=== PATIENT | female | born 1935 | race African-American/Black ===

== ENCOUNTER 2019-03-26 14:42 | Inpatient (IN) | payer BC, MEDICARE ==
[~2019-03-26] VITALS: Ht 152.4 cm; Wt 74.8 kg
[2019-03-26] MEDS ORDERED: ONDANSETRON HCL 4MG/2ML INJ IV STA (15:50)
[2019-03-26] MEDS ORDERED: MORPHINE SULFATE 4 MG/ML CPJ (NOT FOR IM USE) IV STA (15:50)
[2019-03-26] MEDS ORDERED: SODIUM CHLORIDE 0.9% 1,000 ML IV ONE (15:50)
[2019-03-26 16:23] LABS: BASOPHILS % 0.2 % (0.0-2.0); EOSINOPHILS % 0.1 % (0.0-5.0); HEMATOCRIT. 39.9 % (36.0-48.0); HEMOGLOBIN. 13.3 g/dL (12.0-16.0); LYMPHOCYTES % 12.1 % (20.0-50.0); MEAN CORPUSCULAR HEMOGLOBIN 28.5 pg (28.0-32.0); MEAN CORPUSCULAR VOLUME 85.8 fL (81.0-99.0); MEAN PLATELET VOLUME 9.9 fl (7.4-10.4); MONOCYTES % 10.9 % (2.0-8.0); NEUTROPHILS % 76.7 % (40.0-76.0); PLATELET 205 x1000/uL (130-400); RED BLOOD CELL COUNT 4.65 mill/uL (4.2-5.4); RED CELL DISTRIBUTION WIDTH 14.2 % (11.6-14.6)
[2019-03-26 16:24] LABS: CHLORIDE 102 mEq/L (98-107)
[2019-03-26 16:25] LABS: PROTHROMBIN TIME 10.6 sec (9.6-11.0)
[2019-03-26] MEDS ORDERED: PIPERACILLIN/TAZ 3.375G PREMIX 50 ML IV ONE (18:30)
[2019-03-26] MEDS ORDERED: IOHEXOL-300 100 ML BOTTLE ONE (18:31)
[2019-03-26 20:40] VITALS: BP 197/89
[2019-03-26 20:45] VITALS: BP 197/89
[2019-03-26] MEDS ORDERED: LORAZEPAM 2MG/ML CPJ IV PRN (20:45)
[2019-03-26] MEDS ORDERED: DIPHENHYDRAMINE 50MG/ML VIAL IV PRN (20:45)
[2019-03-26] MEDS ORDERED: IPRATROPIUM/ALBUTEROL 0.5-3(2.5)MG/3ML NEB HHN PRN (20:45)
[2019-03-26] MEDS ORDERED: GUAIFENESIN 200MG/10ML SUGAR FREE UDC PO PRN (20:45)
[2019-03-26] MEDS ORDERED: DOCUSATE SODIUM 100MG CAPSULE PO PRN (20:45)
[2019-03-26] MEDS ORDERED: MAGNESIUM/ALUMINUM HYDROXIDE/SIMETHICONE 30ML UDC PO PRN (20:45)
[2019-03-26] MEDS ORDERED: CLONIDINE 0.1MG TABLET PO PRN (20:45)
[2019-03-26] MEDS ORDERED: ACETAMINOPHEN 325MG TABLET PO PRN (20:45)
[2019-03-26] MEDS ORDERED: ONDANSETRON HCL 4MG/2ML INJ IV PRN (20:45)
[2019-03-26] MEDS ORDERED: HYDROCODONE/ACETAMINOPHEN 10/325MG TABLET PO PRN (20:45)
[2019-03-26] MEDS ORDERED: NA PHOS,M-B/NA PHOS,DI-BA ENEMA 118ML PR PRN (20:45)
[2019-03-26] MEDS ORDERED: HYDROMORPHONE HCL/PF 2MG/ML CPJ IV PRN (20:45)
[2019-03-26] MEDS ORDERED: HYDRALAZINE 20MG/ML VIAL IV PRN (22:00)
[2019-03-26] MEDS: ENOXAPARIN 40MG/0.4ML SYR SUBCUT SCH (22:00)
[2019-03-26] MEDS: DEXT 5%/0.45% NACL 1000ML 1,000 ML IV SCH (22:26)
[2019-03-26] MEDS: SODIUM CHLORIDE 0.9% INJ 3ML FLUSH IVF SCH (22:26)
[2019-03-27] VITALS: BP 200/102
[2019-03-27 00:39] LABS: CREATINE KINASE 208 IU/L (26-192)
[2019-03-27 00:40] LABS: CREATINE KINASE MB FRACTION 1.5 ng/mL (0.5-3.6)
[2019-03-27 04:00] VITALS: BP 178/83
[2019-03-27 07:00] LABS: BASOPHILS % 0.4 % (0.0-2.0); EOSINOPHILS % 0.8 % (0.0-5.0); HEMATOCRIT. 35.4 % (36.0-48.0); HEMOGLOBIN. 11.9 g/dL (12.0-16.0); LYMPHOCYTES % 18.5 % (20.0-50.0); MEAN CORPUSCULAR HEMOGLOBIN 28.6 pg (28.0-32.0); MEAN CORPUSCULAR VOLUME 85.4 fL (81.0-99.0); MEAN PLATELET VOLUME 9.6 fl (7.4-10.4); MONOCYTES % 13.2 % (2.0-8.0); NEUTROPHILS % 67.1 % (40.0-76.0); PLATELET 181 x1000/uL (130-400); RED BLOOD CELL COUNT 4.14 mill/uL (4.2-5.4); RED CELL DISTRIBUTION WIDTH 14.5 % (11.6-14.6)
[2019-03-27 07:47] LABS: CHLORIDE 106 mEq/L (98-107)
[2019-03-27 08:00] VITALS: BP 146/86
[2019-03-27 08:05] LABS: CREATINE KINASE 154 IU/L (26-192)
[2019-03-27 08:07] LABS: CREATINE KINASE MB FRACTION 1.1 ng/mL (0.5-3.6)
[2019-03-27 12:00] VITALS: BP 177/82
[2019-03-27] MEDS: ENOXAPARIN 40MG/0.4ML SYR SUBCUT SCH ×2 (15:39→21:45)
[2019-03-27 16:00] VITALS: BP 193/84
[2019-03-27 20:00] VITALS: BP 193/84
[2019-03-27] MEDS: DEXT 5%/0.45% NACL 1000ML 1,000 ML IV SCH (20:41)
[2019-03-27] MEDS: SODIUM CHLORIDE 0.9% INJ 3ML FLUSH IVF SCH (21:52)
[2019-03-28] VITALS: BP 134/81
[2019-03-28 04:00] VITALS: BP 159/90
[2019-03-28 08:00] VITALS: BP_SYST 204; BP_DIAS 104; BP_DIAS 87
== END 2019-03-28 10:35 | disposition left against medical advice (07) | DRG 389 ==
LOC: ER 14:42 → 7WST 18:08 → EDBEDREQ 18:13 → ENRESERV 19:48
PROVIDERS: ADMIT Internal Medicine; ATTEND Internal Medicine
DX: K56.609 Unspecified intestinal obstruction, unspecified as to partial versus complete obstruction (principal); E87.1 Hypo-osmolality and hyponatremia; I10 Essential (primary) hypertension; K52.9 Noninfective gastroenteritis and colitis, unspecified; K57.90 Diverticulosis of intestine, part unspecified, without perforation or abscess without bleeding; Z53.29 Procedure and treatment not carried out because of patient's decision for other reasons; Z90.711 Acquired absence of uterus with remaining cervical stump; Z79.899 Other long term (current) drug therapy
CPT/HCPCS: 36415; 71045; 74018; 74177; 82550; 82553; 82962; 83605; 84484; 93005; 93970; 99285; J1650; J2270; J2405; J2543; J7030; Q9967

== ENCOUNTER 2021-10-02 14:27 | Inpatient (IN) | payer BC, OTHER ==
[~2021-10-02] VITALS: Ht 162.6 cm; Wt 69.6 kg
[2021-10-02] MEDS ORDERED: ONDANSETRON HCL 4MG/2ML INJ IV STA (15:18)
[2021-10-02] MEDS ORDERED: MORPHINE SULFATE 4 MG/ML CPJ (NOT FOR IM USE) IV STA (15:18)
[2021-10-02] MEDS ORDERED: SODIUM CHLORIDE 0.9% 1,000 ML IV ONE (15:30)
[2021-10-02 16:17] LABS: CHLORIDE 105 mEq/L (98-107)
[2021-10-02 16:20] LABS: BASOPHILS % 0.4 % (0.0-2.0); EOSINOPHILS % 0.6 % (0.0-5.0); HEMATOCRIT. 33.3 % (36.0-48.0); HEMOGLOBIN. 10.9 g/dL (12.0-16.0); LYMPHOCYTES % 9.8 % (20.0-50.0); MEAN CORPUSCULAR HEMOGLOBIN 28.3 pg (28.0-32.0); MEAN CORPUSCULAR VOLUME 86.4 fL (81.0-99.0); MEAN PLATELET VOLUME 8.6 fl (7.4-10.4); MONOCYTES % 9.5 % (2.0-8.0); NEUTROPHILS % 79.7 % (40.0-76.0); PLATELET 340 x1000/uL (130-400); RED BLOOD CELL COUNT 3.85 mill/uL (4.2-5.4); RED CELL DISTRIBUTION WIDTH 16.8 % (11.6-14.6)
[2021-10-03] MEDS ORDERED: MORPHINE SULFATE 4 MG/ML CPJ (NOT FOR IM USE) IV PRN (00:15)
[2021-10-03] MEDS ORDERED: DIPHENHYDRAMINE 50MG/ML VIAL IV PRN (00:15)
[2021-10-03] MEDS ORDERED: ONDANSETRON HCL 4MG/2ML INJ IV PRN (00:15)
[2021-10-03] MEDS: ONDANSETRON HCL 4MG/2ML INJ IV PRN (08:54)
[2021-10-03 10:00] VITALS: BP 148/77
[2021-10-03 12:00] VITALS: BP 177/87
[2021-10-03 16:00] VITALS: BP 171/76
[2021-10-03] MEDS: HYDRALAZINE 20MG/ML VIAL IV PRN (17:56)
[2021-10-03] MEDS: DEXT 5%/0.9% NACL 1,000 ML IV SCH (17:57)
[2021-10-03] MEDS: PANTOPRAZOLE SODIUM 40 MG/VIAL IV SCH (17:57)
[2021-10-03 20:32] VITALS: BP 135/61
[2021-10-04] VITALS: BP 133/60
[2021-10-04] MEDS: DEXT 5%/0.9% NACL 1,000 ML IV SCH ×4 (01:32→23:47)
[2021-10-04 04:00] VITALS: BP 139/68
[2021-10-04 08:16] VITALS: BP 167/81
[2021-10-04] MEDS: HYDRALAZINE 20MG/ML VIAL IV PRN (09:27)
[2021-10-04] MEDS: PANTOPRAZOLE SODIUM 40 MG/VIAL IV SCH (09:27)
[2021-10-04 12:26] VITALS: BP 130/67
[2021-10-04] MEDS ORDERED: DIATR MEGLU/DIATRIZOATE SOLN 120ML ONE (15:07)
[2021-10-04 15:30] VITALS: BP 145/73
[2021-10-04 20:00] VITALS: BP 145/70
[2021-10-04] MEDS: ONDANSETRON HCL 4MG/2ML INJ IV PRN (20:39)
[2021-10-04] MEDS: MORPHINE SULFATE 2 MG/ML CPJ (NOT FOR IM USE) IV PRN (20:40)
[2021-10-05] VITALS (40 sets, daily range): BP systolic 95–198; BP diastolic 46–130
[2021-10-05] MEDS: DEXT 5%/0.9% NACL 1,000 ML IV SCH ×2 (08:15→15:35)
[2021-10-05] MEDS: PANTOPRAZOLE SODIUM 40 MG/VIAL IV SCH (09:00)
[2021-10-05] MEDS ORDERED: LIDOCAINE HCL 1% 10 MG/ML 10ML VIAL ONE (12:38)
[2021-10-05] MEDS ORDERED: NALOXONE HCL 0.4MG/ML VIAL IV PRN (15:45)
[2021-10-05] MEDS: HYDRALAZINE 20MG/ML VIAL IV PRN (16:02)
[2021-10-05 16:14] LABS: BG BASE EXCESS -1.9 mmol/L (-2.0-2.0); BG CARBOXYHEMOGLOBIN 0.3 % (0.5-1.5); BG DEOXYHEMOGLOBIN 0.3 % (0.0-5.0); BG HCO3 ACT 21.6 mmol/L (22.0-26.0); BG METHEMOGLOBIN 0.6 % (0.0-1.5); BG OXYGEN SATURATION 99.7 % (92.0-98.5); BG OXYHEMOGLOBIN 98.8 % (94.0-97.0); BG PH 7.434 (7.350-7.450); BG PO2 508.9 mmHg (75.0-100.0); BG SAMPLE SITE LEFT RADIAL; BG TOTAL HEMOGLOBIN 12.5 g/dL (12.0-18.0); BG TOTAL RESPIRATORY RATE 17 b/min; BG VENT MODE VENT - AC
[2021-10-05 16:19] LABS: HEMATOCRIT. 36.6 % (36.0-48.0); HEMOGLOBIN. 11.6 g/dL (12.0-16.0); MEAN CORPUSCULAR HEMOGLOBIN 27.5 pg (28.0-32.0); MEAN CORPUSCULAR VOLUME 86.2 fL (81.0-99.0); MEAN PLATELET VOLUME 8.6 fl (7.4-10.4); PLATELET 368 x1000/uL (130-400); RED BLOOD CELL COUNT 4.24 mill/uL (4.2-5.4); RED CELL DISTRIBUTION WIDTH 16.5 % (11.6-14.6)
[2021-10-05 16:30] LABS: CHLORIDE 118 mEq/L (98-107)
[2021-10-05] MEDS ORDERED: IPRATROPIUM/ALBUTEROL 0.5-3(2.5)MG/3ML NEB HHN PRN (16:45)
[2021-10-05 17:08] LABS: PLATELET ESTIMATE NORMAL
[2021-10-05] MEDS: PROPOFOL 10MG/ML 100ML 100 ML IV PRN (17:18)
[2021-10-05] MEDS ORDERED: POTASSIUM CHLORIDE INJ 40 MEQ in DEXT 5% WATER 250 ML IV ONE (19:00)
[2021-10-05] MEDS: KCL 20MEQ/100ML X 2 FOR TOTAL KCL 40MEQ/200ML IV SCH (22:50)
[2021-10-06] VITALS (29 sets, daily range): BP systolic 116–170; BP diastolic 46–110
[2021-10-06] MEDS: DEXT 5%/0.9% NACL 1,000 ML IV SCH ×4 (01:08→22:48)
[2021-10-06] MEDS: PROPOFOL 10MG/ML 100ML 100 ML IV PRN (03:39)
[2021-10-06 05:54] LABS: CHLORIDE 120 mEq/L (98-107)
[2021-10-06 06:01] LABS: BASOPHILS % 0.3 % (0.0-2.0); HEMATOCRIT. 32.5 % (36.0-48.0); HEMOGLOBIN. 10.5 g/dL (12.0-16.0); LYMPHOCYTES % 8.6 % (20.0-50.0); MEAN CORPUSCULAR VOLUME 86.2 fL (81.0-99.0); MEAN PLATELET VOLUME 8.8 fl (7.4-10.4); MONOCYTES % 9.3 % (2.0-8.0); NEUTROPHILS % 81.8 % (40.0-76.0); PLATELET 299 x1000/uL (130-400); RED BLOOD CELL COUNT 3.77 mill/uL (4.2-5.4); RED CELL DISTRIBUTION WIDTH 16.4 % (11.6-14.6)
[2021-10-06] MEDS: HYDRALAZINE 20MG/ML VIAL IV PRN (07:33)
[2021-10-06] MEDS: PANTOPRAZOLE SODIUM 40 MG/VIAL IV SCH (08:55)
[2021-10-06 09:31] LABS: BG BASE EXCESS -5.8 mmol/L (-2.0-2.0); BG CARBOXYHEMOGLOBIN 0.3 % (0.5-1.5); BG FRACTION INSPIRED OXYGEN 35; BG HCO3 ACT 16.4 mmol/L (22.0-26.0); BG METHEMOGLOBIN 0.2 % (0.0-1.5); BG OXYHEMOGLOBIN 98.5 % (94.0-97.0); BG PCO2 23.4 mmHg (35.0-45.0); BG PH 7.463 (7.350-7.450); BG PO2 147.7 mmHg (75.0-100.0); BG SAMPLE SITE RIGHT RADIAL; BG TOTAL HEMOGLOBIN 11.4 g/dL (12.0-18.0); BG VENT MODE VENT - AC
[2021-10-06] MEDS: MORPHINE SULFATE 2 MG/ML CPJ (NOT FOR IM USE) IV PRN (09:53)
[2021-10-06 11:20] LABS: BG BASE EXCESS -7.3 mmol/L (-2.0-2.0); BG CARBOXYHEMOGLOBIN 0.3 % (0.5-1.5); BG DEOXYHEMOGLOBIN 0.6 % (0.0-5.0); BG FRACTION INSPIRED OXYGEN 100; BG HCO3 ACT 15.5 mmol/L (22.0-26.0); BG METHEMOGLOBIN 0.5 % (0.0-1.5); BG OXYGEN SATURATION 99.4 % (92.0-98.5); BG OXYHEMOGLOBIN 98.6 % (94.0-97.0); BG PH 7.428 (7.350-7.450); BG PO2 468.5 mmHg (75.0-100.0); BG SAMPLE SITE RIGHT RADIAL; BG VENT MODE VENT - CPAP
[2021-10-06] MEDS ORDERED: MORPHINE SULFATE 4 MG/ML CPJ (NOT FOR IM USE) IV PRN (16:00)
[2021-10-07] VITALS (46 sets, daily range): BP systolic 102–188; BP diastolic 24–100
[2021-10-07] MEDS: MORPHINE SULFATE 2 MG/ML CPJ (NOT FOR IM USE) IV PRN ×2 (00:18→09:52)
[2021-10-07] MEDS: HYDRALAZINE 20MG/ML VIAL IV PRN ×2 (01:02→12:57)
[2021-10-07] MEDS: DEXT 5%/0.9% NACL 1,000 ML IV SCH ×2 (06:30→14:58)
[2021-10-07 06:37] LABS: BASOPHILS % 0.3 % (0.0-2.0); EOSINOPHILS % 0.9 % (0.0-5.0); HEMATOCRIT. 31.8 % (36.0-48.0); HEMOGLOBIN. 10.4 g/dL (12.0-16.0); LYMPHOCYTES % 9.7 % (20.0-50.0); MEAN CORPUSCULAR HEMOGLOBIN 27.7 pg (28.0-32.0); MEAN PLATELET VOLUME 9.2 fl (7.4-10.4); MONOCYTES % 8.5 % (2.0-8.0); NEUTROPHILS % 80.6 % (40.0-76.0); PLATELET 311 x1000/uL (130-400); RED BLOOD CELL COUNT 3.74 mill/uL (4.2-5.4); RED CELL DISTRIBUTION WIDTH 17.2 % (11.6-14.6)
[2021-10-07 08:00] LABS: CHLORIDE 120 mEq/L (98-107)
[2021-10-07 08:06] LABS: PHOSPHORUS 2.1 mg/dL (2.5-4.9)
[2021-10-07] MEDS: PANTOPRAZOLE SODIUM 40 MG/VIAL IV SCH (08:37)
[2021-10-07] MEDS: DEXT 5%/0.45% NACL 1000ML 1,000 ML IV SCH (16:35)
[2021-10-08] VITALS (11 sets, daily range): BP systolic 111–177; BP diastolic 51–91
[2021-10-08] MEDS: HYDRALAZINE 20MG/ML VIAL IV PRN ×2 (00:31→17:26)
[2021-10-08] MEDS: DEXT 5%/0.45% NACL 1000ML 1,000 ML IV SCH ×3 (02:00→21:27)
[2021-10-08] MEDS: PANTOPRAZOLE SODIUM 40 MG/VIAL IV SCH (08:02)
[2021-10-08] MEDS: ONDANSETRON HCL 4MG/2ML INJ IV PRN (13:26)
[2021-10-08] MEDS: MORPHINE SULFATE 2 MG/ML CPJ (NOT FOR IM USE) IV PRN (17:25)
[2021-10-09] VITALS: BP 172/87
[2021-10-09] MEDS: HYDRALAZINE 20MG/ML VIAL IV PRN ×2 (00:33→20:54)
[2021-10-09] MEDS: MORPHINE SULFATE 2 MG/ML CPJ (NOT FOR IM USE) IV PRN (02:19)
[2021-10-09 04:00] VITALS: BP 150/72
[2021-10-09] MEDS: DEXT 5%/0.45% NACL 1000ML 1,000 ML IV SCH ×2 (06:05→17:30)
[2021-10-09 08:00] VITALS: BP 161/75
[2021-10-09] MEDS: PANTOPRAZOLE SODIUM 40 MG/VIAL IV SCH (09:48)
[2021-10-09 12:00] VITALS: BP 169/85
[2021-10-09 16:00] VITALS: BP 147/81
[2021-10-09 20:00] VITALS: BP 187/93
[2021-10-10] VITALS: BP 147/66
[2021-10-10 04:00] VITALS: BP 138/72
[2021-10-10] MEDS: DEXT 5%/0.45% NACL 1000ML 1,000 ML IV SCH ×3 (04:28→23:19)
[2021-10-10 05:31] LABS: HEMATOCRIT. 37.1 % (36.0-48.0); MEAN CORPUSCULAR HEMOGLOBIN 27.3 pg (28.0-32.0); MEAN CORPUSCULAR VOLUME 84.6 fL (81.0-99.0); MEAN PLATELET VOLUME 9.2 fl (7.4-10.4); PLATELET 318 x1000/uL (130-400); RED BLOOD CELL COUNT 4.39 mill/uL (4.2-5.4); RED CELL DISTRIBUTION WIDTH 16.1 % (11.6-14.6)
[2021-10-10 05:36] LABS: CHLORIDE 115 mEq/L (98-107)
[2021-10-10 05:40] LABS: PHOSPHORUS 2.7 mg/dL (2.5-4.9)
[2021-10-10 07:58] VITALS: BP 140/77
[2021-10-10] MEDS: PANTOPRAZOLE SODIUM 40 MG/VIAL IV SCH (09:10)
[2021-10-10] MEDS: KCL 20MEQ/100ML PREMIX 100 ML IV SCH ×2 (11:24→13:37)
[2021-10-10 11:48] VITALS: BP 128/74
[2021-10-10] MEDS ORDERED: MAGNESIUM 1 G PREMIX 100 ML IV SCH (12:00)
[2021-10-10 12:52] LABS: PLATELET ESTIMATE NORMAL
[2021-10-10 16:00] VITALS: BP 167/83
[2021-10-10] MEDS ORDERED: POTASSIUM CHLORIDE INJ 40 MEQ in DEXT 5% WATER 500 ML IV ONE (17:15)
[2021-10-10] MEDS ORDERED: MAGNESIUM 1 G PREMIX 100 ML IV NR (18:00)
[2021-10-10 20:00] VITALS: BP 164/77
[2021-10-10] MEDS: HYDRALAZINE 20MG/ML VIAL IV PRN (21:04)
[2021-10-10] MEDS: KCL 20MEQ/100ML X 2 FOR TOTAL KCL 40MEQ/200ML IV SCH ×2 (21:05→23:18)
[2021-10-11] VITALS: BP 132/68
[2021-10-11 04:00] VITALS: BP 157/82
[2021-10-11] MEDS: MORPHINE SULFATE 2 MG/ML CPJ (NOT FOR IM USE) IV PRN ×2 (05:42→10:58)
[2021-10-11 06:10] LABS: BASOPHILS % 0.1 % (0.0-2.0); EOSINOPHILS % 0.7 % (0.0-5.0); HEMATOCRIT. 33.4 % (36.0-48.0); HEMOGLOBIN. 10.9 g/dL (12.0-16.0); LYMPHOCYTES % 8.1 % (20.0-50.0); MEAN CORPUSCULAR HEMOGLOBIN 27.5 pg (28.0-32.0); MEAN CORPUSCULAR VOLUME 84.1 fL (81.0-99.0); MEAN PLATELET VOLUME 8.4 fl (7.4-10.4); MONOCYTES % 10.8 % (2.0-8.0); NEUTROPHILS % 80.3 % (40.0-76.0); PLATELET 300 x1000/uL (130-400); RED BLOOD CELL COUNT 3.97 mill/uL (4.2-5.4); RED CELL DISTRIBUTION WIDTH 16.1 % (11.6-14.6)
[2021-10-11 08:10] VITALS: BP 161/83
[2021-10-11 08:32] LABS: CHLORIDE 116 mEq/L (98-107); PHOSPHORUS 2.2 mg/dL (2.5-4.9)
[2021-10-11] MEDS: PANTOPRAZOLE SODIUM 40 MG/VIAL IV SCH (09:38)
[2021-10-11] MEDS: HYDRALAZINE 20MG/ML VIAL IV PRN (09:38)
[2021-10-11 12:00] VITALS: BP 131/66
[2021-10-11] MEDS ORDERED: POTASSIUM PHOS,M-BASIC-D-BASIC 20 MMOL in DEXT 5% WATER 250 ML IV SCH (12:00)
[2021-10-11 16:00] VITALS: BP 134/80
[2021-10-11 20:00] VITALS: BP 139/76
[2021-10-12] VITALS: BP 153/77
[2021-10-12 04:00] VITALS: BP 152/84
[2021-10-12] MEDS: DEXT 5%/0.45% NACL 1000ML 1,000 ML IV SCH ×2 (05:06→18:39)
[2021-10-12 08:00] VITALS: BP 175/86
[2021-10-12] MEDS: ACETAMINOPHEN 650MG/20.3ML UDC PO PRN ×2 (08:07→21:28)
[2021-10-12] MEDS: PANTOPRAZOLE SODIUM 40 MG/VIAL IV SCH (08:09)
[2021-10-12] MEDS: HYDRALAZINE 20MG/ML VIAL IV PRN (08:11)
[2021-10-12 12:00] VITALS: BP 148/78
[2021-10-12 16:00] VITALS: BP 155/82
[2021-10-12 20:00] VITALS: BP 143/84
[2021-10-13] VITALS: BP 177/99
[2021-10-13] MEDS: HYDRALAZINE 20MG/ML VIAL IV PRN ×2 (00:57→20:47)
[2021-10-13] MEDS: DEXT 5%/0.45% NACL 1000ML 1,000 ML IV SCH ×3 (00:59→20:48)
[2021-10-13 04:00] VITALS: BP 156/83
[2021-10-13 08:00] VITALS: BP 176/97
[2021-10-13] MEDS: PANTOPRAZOLE SODIUM 40 MG/VIAL IV SCH (09:43)
[2021-10-13] MEDS: ACETAMINOPHEN 650MG/20.3ML UDC PO PRN (09:43)
[2021-10-13 12:00] VITALS: BP 132/80
[2021-10-13] MEDS ORDERED: DILTIAZEM HCL 60MG TABLET PO SCH (14:00)
[2021-10-13 16:00] VITALS: BP 169/84
[2021-10-13] MEDS: METOPROLOL TARTRATE 25MG TABLET PO SCH (18:19)
[2021-10-13 20:00] VITALS: BP 177/95
[2021-10-14] VITALS: BP 155/76
[2021-10-14 03:57] VITALS: BP 160/75
[2021-10-14] MEDS: DEXT 5%/0.45% NACL 1000ML 1,000 ML IV SCH ×2 (06:56→15:43)
[2021-10-14 07:59] VITALS: BP 159/72
[2021-10-14] MEDS: METOPROLOL TARTRATE 25MG TABLET PO SCH ×2 (09:18→16:17)
[2021-10-14] MEDS: ACETAMINOPHEN 650MG/20.3ML UDC PO PRN ×2 (09:18→16:22)
[2021-10-14] MEDS: PANTOPRAZOLE SODIUM 40 MG/VIAL IV SCH (09:19)
[2021-10-14 12:00] VITALS: BP 157/83
[2021-10-14 16:00] VITALS: BP 161/80
[2021-10-14] MEDS: HYDRALAZINE 20MG/ML VIAL IV PRN (16:17)
[2021-10-14 20:00] VITALS: BP 149/65
[2021-10-15] VITALS: BP 154/72
[2021-10-15] MEDS: DEXT 5%/0.45% NACL 1000ML 1,000 ML IV SCH (03:56)
[2021-10-15 04:00] VITALS: BP 168/76
[2021-10-15] MEDS: HYDRALAZINE 20MG/ML VIAL IV PRN (04:54)
[2021-10-15 08:00] VITALS: BP 131/77
[2021-10-15] MEDS: PANTOPRAZOLE SODIUM 40 MG/VIAL IV SCH (09:17)
[2021-10-15] MEDS: METOPROLOL TARTRATE 25MG TABLET PO SCH ×2 (09:26→17:07)
[2021-10-15 12:00] VITALS: BP 155/71
[2021-10-15 16:38] VITALS: BP 162/80
[2021-10-15 20:00] VITALS: BP 156/72
[2021-10-15] MEDS: ACETAMINOPHEN 650MG/20.3ML UDC PO PRN (23:19)
[2021-10-16] VITALS: BP 146/81
[2021-10-16 04:00] VITALS: BP_SYST 118; BP_SYST 154; BP_DIAS 50; BP_DIAS 70
[2021-10-16] MEDS: OMEPRAZOLE 20MG CAPSULE EXTENDED RELEASE PO SCH (06:33)
[2021-10-16 08:00] VITALS: BP_SYST 147; BP_SYST 152; BP_DIAS 70; BP_DIAS 77
[2021-10-16] MEDS: METOPROLOL TARTRATE 25MG TABLET PO SCH (09:23)
[2021-10-16 16:00] VITALS: BP 151/76
[2021-10-16 20:00] VITALS: BP 157/64
[2021-10-17 00:07] VITALS: BP 169/87
[2021-10-17] MEDS: HYDRALAZINE 20MG/ML VIAL IV PRN (00:14)
[2021-10-17 04:08] VITALS: BP 155/87
[2021-10-17] MEDS: OMEPRAZOLE 20MG CAPSULE EXTENDED RELEASE PO SCH (06:16)
[2021-10-17] MEDS: METOPROLOL TARTRATE 25MG TABLET PO SCH ×2 (08:07→16:10)
[2021-10-17 11:57] VITALS: BP 157/78
[2021-10-17] MEDS ORDERED: MAGNESIUM HYDROXIDE 400MG/5ML 30ML UDC PO NR (13:00)
[2021-10-17 15:59] VITALS: BP 104/72
[2021-10-17 20:00] VITALS: BP 155/77
[2021-10-18] VITALS: BP 145/72
[2021-10-18 04:00] VITALS: BP 154/74
[2021-10-18] MEDS: OMEPRAZOLE 20MG CAPSULE EXTENDED RELEASE PO SCH (06:30)
[2021-10-18 08:00] VITALS: BP_SYST 121; BP_SYST 182; BP_DIAS 54; BP_DIAS 85
[2021-10-18 08:10] LABS: BASOPHILS % 0.5 % (0.0-2.0); EOSINOPHILS % 1.8 % (0.0-5.0); HEMOGLOBIN. 10.3 g/dL (12.0-16.0); LYMPHOCYTES % 17.4 % (20.0-50.0); MEAN CORPUSCULAR HEMOGLOBIN 28.7 pg (28.0-32.0); MEAN CORPUSCULAR VOLUME 86.2 fL (81.0-99.0); MEAN PLATELET VOLUME 9.4 fl (7.4-10.4); MONOCYTES % 10.8 % (2.0-8.0); NEUTROPHILS % 69.5 % (40.0-76.0); PLATELET 206 x1000/uL (130-400); RED CELL DISTRIBUTION WIDTH 16.8 % (11.6-14.6)
[2021-10-18 08:51] LABS: CHLORIDE 110 mEq/L (98-107)
[2021-10-18] MEDS: LOSARTAN POTASSIUM 25 MG TABLET PO SCH (08:57)
[2021-10-18] MEDS: METOPROLOL TARTRATE 25MG TABLET PO SCH ×2 (08:58→18:11)
[2021-10-18] MEDS: HYDRALAZINE 20MG/ML VIAL IV PRN (08:59)
[2021-10-18 09:03] LABS: PHOSPHORUS 2.7 mg/dL (2.5-4.9)
[2021-10-18 12:00] VITALS: BP 147/74
[2021-10-18 16:00] VITALS: BP 144/70
[2021-10-18 20:00] VITALS: BP 148/80
[2021-10-19] VITALS: BP 156/48
[2021-10-19 06:17] VITALS: BP 136/82
[2021-10-19] MEDS: OMEPRAZOLE 20MG CAPSULE EXTENDED RELEASE PO SCH (06:21)
[2021-10-19] MEDS: LOSARTAN POTASSIUM 25 MG TABLET PO SCH (10:04)
[2021-10-19] MEDS: METOPROLOL TARTRATE 25MG TABLET PO SCH ×2 (10:06→18:35)
[2021-10-19] MEDS: HYDRALAZINE 20MG/ML VIAL IV PRN (10:08)
[2021-10-19] MEDS ORDERED: BISACODYL 10MG SUPP PR NR (10:45)
[2021-10-19 20:00] VITALS: BP 127/83
[2021-10-20] VITALS: BP 158/76
[2021-10-20 04:00] VITALS: BP 112/73
[2021-10-20] MEDS: OMEPRAZOLE 20MG CAPSULE EXTENDED RELEASE PO SCH (06:43)
[2021-10-20 08:00] VITALS: BP 164/76
[2021-10-20] MEDS: LOSARTAN POTASSIUM 25 MG TABLET PO SCH (09:00)
[2021-10-20] MEDS: METOPROLOL TARTRATE 25MG TABLET PO SCH ×2 (09:18→18:51)
[2021-10-20 12:00] VITALS: BP 157/79
[2021-10-20 16:00] VITALS: BP 150/69
[2021-10-20 20:00] VITALS: BP 168/99
[2021-10-20 21:09] LABS: BASOPHILS % 1.2 % (0.0-2.0); EOSINOPHILS % 1.7 % (0.0-5.0); HEMOGLOBIN. 8.9 g/dL (12.0-16.0); LYMPHOCYTES % 18.8 % (20.0-50.0); MEAN CORPUSCULAR HEMOGLOBIN 27.6 pg (28.0-32.0); MEAN CORPUSCULAR VOLUME 83.8 fL (81.0-99.0); MEAN PLATELET VOLUME 8.7 fl (7.4-10.4); MONOCYTES % 7.3 % (2.0-8.0); PLATELET 245 x1000/uL (130-400); RED BLOOD CELL COUNT 3.23 mill/uL (4.2-5.4); RED CELL DISTRIBUTION WIDTH 16.5 % (11.6-14.6)
[2021-10-20 21:33] LABS: CHLORIDE 108 mEq/L (98-107)
[2021-10-20] MEDS: CLONIDINE 0.2MG TABLET PO PRN (21:33)
[2021-10-21] VITALS: BP 135/67
[2021-10-21 04:00] VITALS: BP 161/77
[2021-10-21] MEDS: CLONIDINE 0.2MG TABLET PO PRN (05:01)
[2021-10-21] MEDS: OMEPRAZOLE 20MG CAPSULE EXTENDED RELEASE PO SCH (06:22)
[2021-10-21 08:00] VITALS: BP 153/67
[2021-10-21] MEDS: LOSARTAN POTASSIUM 25 MG TABLET PO SCH (08:58)
[2021-10-21] MEDS: METOPROLOL TARTRATE 25MG TABLET PO SCH ×2 (08:59→16:28)
[2021-10-21 12:00] VITALS: BP 146/56
[2021-10-21] MEDS ORDERED: HYDRALAZINE 10 MG in SODIUM CHLORIDE 0.9% 49.5 ML IV PRN ×4 (15:30)
[2021-10-21 16:00] VITALS: BP 127/52
[2021-10-21 20:00] VITALS: BP 155/72
[2021-10-22] VITALS: BP 169/70
[2021-10-22 04:00] VITALS: BP 142/77
[2021-10-22 08:00] VITALS: BP 151/71
[2021-10-22] MEDS: METOPROLOL TARTRATE 25MG TABLET PO SCH ×2 (09:00→17:00)
[2021-10-22] MEDS: LOSARTAN POTASSIUM 25 MG TABLET PO SCH (09:33)
[2021-10-22] MEDS: OMEPRAZOLE 20MG CAPSULE EXTENDED RELEASE PO SCH (09:33)
[2021-10-22 12:00] VITALS: BP 144/68
[2021-10-22 16:00] VITALS: BP 139/65
[2021-10-22 20:00] VITALS: BP 149/74
[2021-10-23] VITALS: BP 142/72
[2021-10-23 04:00] VITALS: BP 140/70
[2021-10-23 08:00] VITALS: BP 177/75
[2021-10-23] MEDS: CLONIDINE 0.2MG TABLET PO PRN (09:08)
[2021-10-23] MEDS: METOPROLOL TARTRATE 25MG TABLET PO SCH ×2 (09:08→17:08)
[2021-10-23] MEDS: OMEPRAZOLE 20MG CAPSULE EXTENDED RELEASE PO SCH (09:08)
[2021-10-23] MEDS: LOSARTAN POTASSIUM 25 MG TABLET PO SCH (09:08)
[2021-10-23 12:00] VITALS: BP 120/64
[2021-10-23 16:00] VITALS: BP 109/73
[2021-10-23 20:00] VITALS: BP 94/67
[2021-10-24 04:00] VITALS: BP 156/66
[2021-10-24 08:00] VITALS: BP 148/68
[2021-10-24] MEDS: METOPROLOL TARTRATE 25MG TABLET PO SCH ×2 (09:00→17:41)
[2021-10-24] MEDS: OMEPRAZOLE 20MG CAPSULE EXTENDED RELEASE PO SCH (09:50)
[2021-10-24] MEDS: LOSARTAN POTASSIUM 25 MG TABLET PO SCH (09:50)
[2021-10-24 12:00] VITALS: BP 160/64
[2021-10-24 16:00] VITALS: BP 142/58
[2021-10-24 20:00] VITALS: BP 158/60
[2021-10-25] VITALS: BP 146/61
[2021-10-25 04:00] VITALS: BP 139/65
[2021-10-25] MEDS: OMEPRAZOLE 20MG CAPSULE EXTENDED RELEASE PO SCH (06:26)
[2021-10-25 08:00] VITALS: BP 169/70
[2021-10-25] MEDS: LOSARTAN POTASSIUM 25 MG TABLET PO SCH (08:43)
[2021-10-25] MEDS: METOPROLOL TARTRATE 25MG TABLET PO SCH ×2 (08:44→18:38)
[2021-10-25 12:00] VITALS: BP 160/70
[2021-10-25 16:00] VITALS: BP 143/66
[2021-10-25 20:00] VITALS: BP 148/70
[2021-10-26] VITALS: BP 154/68
[2021-10-26 04:00] VITALS: BP 102/55
[2021-10-26 08:00] VITALS: BP 177/77
[2021-10-26] MEDS: METOPROLOL TARTRATE 25MG TABLET PO SCH ×2 (08:23→18:32)
[2021-10-26] MEDS: OMEPRAZOLE 20MG CAPSULE EXTENDED RELEASE PO SCH (08:30)
[2021-10-26] MEDS: LOSARTAN POTASSIUM 25 MG TABLET PO SCH (08:30)
[2021-10-26 12:00] VITALS: BP 168/65
[2021-10-26 16:00] VITALS: BP 145/57
[2021-10-26 20:00] VITALS: BP 149/58
[2021-10-27] VITALS: BP 161/69
[2021-10-27 04:00] VITALS: BP 166/70
[2021-10-27] MEDS: CLONIDINE 0.2MG TABLET PO PRN (05:03)
[2021-10-27] MEDS: OMEPRAZOLE 20MG CAPSULE EXTENDED RELEASE PO SCH ×2 (07:55→08:49)
[2021-10-27 08:00] VITALS: BP 127/54
[2021-10-27] MEDS: METOPROLOL TARTRATE 25MG TABLET PO SCH ×2 (08:49→17:00)
[2021-10-27] MEDS: LOSARTAN POTASSIUM 25 MG TABLET PO SCH (08:49)
[2021-10-27 20:00] VITALS: BP 119/54
[2021-10-28] VITALS: BP 157/77
[2021-10-28 04:00] VITALS: BP 156/67
[2021-10-28 08:00] VITALS: BP 109/64
[2021-10-28 12:00] VITALS: BP 130/50
[2021-10-28 12:30] VITALS: BP 130/50
== END 2021-10-28 13:35 | DRG 335 ==
LOC: ER 14:27 → MICUSO 22:21 → 6WST 10-03 09:45 → CVICU 10-05 15:32 → 6WST 10-08 08:51 → 6EST 10-19 15:50
PROVIDERS: ADMIT Internal Medicine; ATTEND Internal Medicine
PROC: 0DN80ZZ Release Small Intestine, Open Approach (ICD-10-PCS; principal; 2021-10-05)
PROC: 02HV33Z Insertion of Infusion Device into Superior Vena Cava, Percutaneous Approach (ICD-10-PCS; 2021-10-05)
DX: K56.601 Complete intestinal obstruction, unspecified as to cause (principal); G93.41 Metabolic encephalopathy; S42.212A Unspecified displaced fracture of surgical neck of left humerus, initial encounter for closed fracture; K57.92 Diverticulitis of intestine, part unspecified, without perforation or abscess without bleeding; K56.7 Ileus, unspecified; D64.9 Anemia, unspecified; I10 Essential (primary) hypertension; M19.90 Unspecified osteoarthritis, unspecified site; Z20.822 Contact with and (suspected) exposure to COVID-19; R53.81 Other malaise; R26.9 Unspecified abnormalities of gait and mobility; E87.6 Hypokalemia; X58.XXXA Exposure to other specified factors, initial encounter; Y93.89 Activity, other specified; Z90.710 Acquired absence of both cervix and uterus; Z88.0 Allergy status to penicillin; Z88.8 Allergy status to other drugs, medicaments and biological substances; Z91.012 Allergy to eggs; Z91.010 Allergy to peanuts; Z82.49 Family history of ischemic heart disease and other diseases of the circulatory system; Y92.89 Other specified places as the place of occurrence of the external cause; Y99.8 Other external cause status; Z98.890 Other specified postprocedural states
CPT/HCPCS: 31500; 36415; 36600; 71045; 73030; 74018; 74176; 74250; 76937; 80048; 80053; 82375; 82805; 82962; 83735; 84100; 84478; 85025; 86850; 86900; 87070; 87426; 93005; 93923; 94002; 94003; 97110; 97162; 97166; 97168; 97530; 99291; A4565; C1725; C1769; C9113; J0360; J2270; J2405; J2704; J3475; J3480; J3490; J7030; J7042; J7060; Q9963; A4315

== ENCOUNTER 2022-05-11 12:45 | Inpatient (IN) | payer BC, OTHER ==
[~2022-05-11] VITALS: Ht 165.1 cm; Wt 60.3 kg
[2022-05-11] VITALS (26 sets, daily range): BP systolic 116–163; BP diastolic 50–94
[2022-05-11] MEDS ORDERED: SODIUM CHLORIDE 0.9% 1,000 ML IV ONE (13:00)
[2022-05-11 14:39] LABS: BASOPHILS % 0.5 % (0.0-2.0); EOSINOPHILS % 1.1 % (0.0-5.0); LYMPHOCYTES % 14.6 % (20.0-50.0); MEAN CORPUSCULAR HEMOGLOBIN 27.7 pg (28.0-32.0); MEAN CORPUSCULAR VOLUME 85.2 fL (81.0-99.0); MEAN PLATELET VOLUME 8.3 fl (7.4-10.4); MONOCYTES % 6.9 % (2.0-8.0); NEUTROPHILS % 76.9 % (40.0-76.0); PLATELET 346 x1000/uL (130-400); RED BLOOD CELL COUNT 4.35 mill/uL (4.2-5.4); RED CELL DISTRIBUTION WIDTH 15.3 % (11.6-14.6)
[2022-05-11 16:17] LABS: CHLORIDE 110 mEq/L (98-107)
[2022-05-11] MEDS ORDERED: LEVETIRACETAM 500MG PREMIX 100 ML IV SCH (17:00)
[2022-05-11 17:08] LABS: PROTHROMBIN TIME 10.8 sec (9.6-11.0)
[2022-05-11] MEDS: DEXT 5%/LACTATED RINGERS 1,000 ML IV SCH (18:26)
[2022-05-11] MEDS ORDERED: TRAMADOL 50MG TABLET PO PRN (19:00)
[2022-05-11] MEDS ORDERED: ONDANSETRON HCL 4MG/2ML INJ IV PRN (19:00)
[2022-05-11] MEDS: NICARDIPINE 100 MG in SODIUM CHLORIDE 0.9% 60 ML IV PRN (19:14)
[2022-05-11] MEDS ORDERED: LOSA50TA41 PO (19:28)
[2022-05-11] MEDS ORDERED: METO25TA6 PO (19:28)
[2022-05-11] MEDS ORDERED: INSLIS SUBCUT (19:28)
[2022-05-11] MEDS ORDERED: OMEP20CA14 PO (19:28)
[2022-05-12] VITALS (86 sets, daily range): BP systolic 70–157; BP diastolic 41–142
[2022-05-12] MEDS ORDERED: THROMBIN (BOVINE) 5000 UNITS/VIAL TOP ONE (06:39)
[2022-05-12] MEDS ORDERED: LIDOCAINE HCL 1%/EPI 1:200,000 30 ML VIAL ONE (06:39)
[2022-05-12] MEDS ORDERED: BACITRACIN/POLYMYXIN B SULFATE OINT 15GM TOP ONE (06:39)
[2022-05-12] MEDS ORDERED: GENTAMICIN SULF 40MG/ML 2ML VIAL ONE (06:39)
[2022-05-12] MEDS ORDERED: PROPOFOL 200MG/20ML VIAL IV ONE (08:16)
[2022-05-12] MEDS ORDERED: CLINDAMYCIN 900 MG PREMIX 50 ML IV ONE (08:33)
[2022-05-12] MEDS ORDERED: ONDANSETRON HCL 4MG/2ML INJ ONE (08:42)
[2022-05-12] MEDS ORDERED: DEXAMETHASONE 4MG/ML 1ML VIAL ONE (08:59)
[2022-05-12] MEDS ORDERED: FENTANYL CITRATE/PF 50MCG/ML 2ML VIAL IV PRN (09:00)
[2022-05-12] MEDS ORDERED: NALOXONE HCL 0.4MG/ML VIAL IV PRN (09:15)
[2022-05-12] MEDS: MORPHINE SULFATE 2 MG/ML CPJ (NOT FOR IM USE) IV PRN (09:34)
[2022-05-12] MEDS: DEXT 5%/LACTATED RINGERS 1,000 ML IV SCH (09:45)
[2022-05-12] MEDS: LEVETIRACETAM 500MG PREMIX 100 ML IV SCH ×2 (10:06→21:35)
[2022-05-12] MEDS: NICARDIPINE 100 MG in SODIUM CHLORIDE 0.9% 60 ML IV PRN (10:06)
[2022-05-12 11:47] LABS: CHLORIDE 114 mEq/L (98-107)
[2022-05-12 12:14] LABS: HDL CHOLESTEROL 56 mg/dL (40-59); LDL CHOLESTEROL 140 mg/dL (5-100)
[2022-05-12 14:28] LABS: GENTAMICIN RANDOM < 0.2 ug/mL
[2022-05-12] MEDS ORDERED: GENTAMICIN 120MG PREMIX 100 ML IV NR (16:00)
[2022-05-12] MEDS: ACETAMINOPHEN 325MG TABLET PO PRN (17:32)
[2022-05-13] VITALS (90 sets, daily range): BP systolic 78–168; BP diastolic 37–132
[2022-05-13] MEDS: ACETAMINOPHEN 325MG TABLET PO PRN ×2 (01:31→09:08)
[2022-05-13] MEDS: MORPHINE SULFATE 2 MG/ML CPJ (NOT FOR IM USE) IV PRN (02:12)
[2022-05-13] MEDS: DEXT 5%/LACTATED RINGERS 1,000 ML IV SCH ×2 (02:47→20:19)
[2022-05-13] MEDS: PANTOPRAZOLE SODIUM 40 MG/VIAL IV SCH ×2 (09:00→09:08)
[2022-05-13] MEDS: LEVETIRACETAM 500MG PREMIX 100 ML IV SCH ×2 (09:08→20:18)
[2022-05-13] MEDS ORDERED: GENTAMICIN 100MG PREMIX 100 ML IV SCH (10:00)
[2022-05-13] MEDS ORDERED: IPRATROPIUM/ALBUTEROL 0.5-3(2.5)MG/3ML NEB HHN PRN (10:15)
[2022-05-13] MEDS ORDERED: GENTAMICIN 100MG PREMIX 50 ML IV SCH (11:30)
[2022-05-13 12:26] LABS: BASOPHILS % 0.1 % (0.0-2.0); EOSINOPHILS % 0.1 % (0.0-5.0); HEMATOCRIT. 35.8 % (36.0-48.0); HEMOGLOBIN. 11.6 g/dL (12.0-16.0); LYMPHOCYTES % 13.8 % (20.0-50.0); MEAN CORPUSCULAR HEMOGLOBIN 27.8 pg (28.0-32.0); MEAN CORPUSCULAR VOLUME 85.8 fL (81.0-99.0); MEAN PLATELET VOLUME 8.2 fl (7.4-10.4); MONOCYTES % 8.5 % (2.0-8.0); NEUTROPHILS % 77.5 % (40.0-76.0); PLATELET 331 x1000/uL (130-400); RED BLOOD CELL COUNT 4.17 mill/uL (4.2-5.4); RED CELL DISTRIBUTION WIDTH 15.2 % (11.6-14.6)
[2022-05-13 14:32] LABS: CHLORIDE 110 mEq/L (98-107)
[2022-05-14] VITALS (72 sets, daily range): BP systolic 99–157; BP diastolic 40–116
[2022-05-14] MEDS: MORPHINE SULFATE 2 MG/ML CPJ (NOT FOR IM USE) IV PRN (04:47)
[2022-05-14] MEDS: NICARDIPINE 100 MG in SODIUM CHLORIDE 0.9% 60 ML IV PRN ×2 (05:38→19:46)
[2022-05-14] MEDS: PANTOPRAZOLE SODIUM 40 MG/VIAL IV SCH (09:47)
[2022-05-14] MEDS: LEVETIRACETAM 500MG PREMIX 100 ML IV SCH ×2 (09:47→20:35)
[2022-05-14] MEDS ORDERED: HYDRALAZINE HCL 25MG TABLET PO SCH (14:00)
[2022-05-14] MEDS: DEXT 5%/LACTATED RINGERS 1,000 ML IV SCH ×2 (14:56→19:34)
[2022-05-14] MEDS ORDERED: ENALAPRIL 2.5MG/2ML VIAL 2ML IV PRN (20:15)
[2022-05-14] MEDS: HYDRALAZINE HCL 25MG TABLET PO SCH (22:00)
[2022-05-15] VITALS (70 sets, daily range): BP systolic 94–166; BP diastolic 22–106
[2022-05-15] MEDS: HYDRALAZINE HCL 25MG TABLET PO SCH
[2022-05-15] MEDS ORDERED: NICARDIPINE 50 MG in SODIUM CHLORIDE 0.9% 230 ML IV PRN (02:45)
[2022-05-15] MEDS ORDERED: NICARDIPINE 100 MG in SODIUM CHLORIDE 0.9% 60 ML IV PRN (02:45)
[2022-05-15] MEDS ORDERED: HYDRALAZINE HCL 25MG TABLET PO SCH ×2 (06:00→08:00)
[2022-05-15] MEDS: PANTOPRAZOLE SODIUM 40 MG/VIAL IV SCH (09:21)
[2022-05-15] MEDS: LEVETIRACETAM 500MG PREMIX 100 ML IV SCH ×2 (09:21→20:58)
[2022-05-15] MEDS: LOSARTAN POTASSIUM 50 MG TABLET PO SCH (11:09)
[2022-05-15] MEDS: METOPROLOL TARTRATE 25MG TABLET PO SCH ×2 (11:10→20:58)
[2022-05-15] MEDS: HYDRALAZINE HCL 100MG TABLET PO SCH ×2 (13:37→21:00)
[2022-05-15] MEDS: DEXT 5%/LACTATED RINGERS 1,000 ML IV SCH (21:00)
[2022-05-16] VITALS (40 sets, daily range): BP systolic 101–163; BP diastolic 22–108
[2022-05-16] MEDS: PANTOPRAZOLE SODIUM 40 MG/VIAL IV SCH (09:30)
[2022-05-16] MEDS: HYDRALAZINE HCL 100MG TABLET PO SCH ×3 (09:30→22:00)
[2022-05-16] MEDS: METOPROLOL TARTRATE 25MG TABLET PO SCH ×2 (09:31→21:35)
[2022-05-16] MEDS: LOSARTAN POTASSIUM 50 MG TABLET PO SCH (09:31)
[2022-05-16] MEDS: LEVETIRACETAM 500MG PREMIX 100 ML IV SCH ×2 (09:32→21:34)
[2022-05-16] MEDS: DEXT 5%/LACTATED RINGERS 1,000 ML IV SCH (14:24)
[2022-05-16] MEDS ORDERED: MORPHINE SULFATE 2 MG/ML CPJ (NOT FOR IM USE) IV NR (16:45)
[2022-05-16] MEDS ORDERED: HYDROCODONE/ACETAMINOPHEN 7.5/325MG TABLET PO PRN (16:45)
[2022-05-17] VITALS (35 sets, daily range): BP systolic 108–162; BP diastolic 40–95
[2022-05-17] MEDS: HYDRALAZINE HCL 100MG TABLET PO SCH ×3 (05:59→22:53)
[2022-05-17] MEDS: LOSARTAN POTASSIUM 50 MG TABLET PO SCH (09:08)
[2022-05-17] MEDS: LEVETIRACETAM 500MG PREMIX 100 ML IV SCH ×2 (09:08→20:28)
[2022-05-17] MEDS: PANTOPRAZOLE SODIUM 40 MG/VIAL IV SCH (09:09)
[2022-05-17] MEDS: METOPROLOL TARTRATE 25MG TABLET PO SCH ×2 (09:09→20:27)
[2022-05-17 10:37] LABS: BASOPHILS % 0.6 % (0.0-2.0); EOSINOPHILS % 1.1 % (0.0-5.0); HEMATOCRIT. 32.7 % (36.0-48.0); HEMOGLOBIN. 10.9 g/dL (12.0-16.0); LYMPHOCYTES % 19.5 % (20.0-50.0); MEAN CORPUSCULAR HEMOGLOBIN 27.5 pg (28.0-32.0); MEAN CORPUSCULAR VOLUME 82.7 fL (81.0-99.0); MEAN PLATELET VOLUME 8.7 fl (7.4-10.4); MONOCYTES % 10.2 % (2.0-8.0); NEUTROPHILS % 68.6 % (40.0-76.0); PLATELET 308 x1000/uL (130-400); RED BLOOD CELL COUNT 3.95 mill/uL (4.2-5.4); RED CELL DISTRIBUTION WIDTH 14.8 % (11.6-14.6)
[2022-05-17 11:19] LABS: CHLORIDE 109 mEq/L (98-107)
[2022-05-17] MEDS: DEXT 5%/LACTATED RINGERS 1,000 ML IV SCH ×2 (20:00)
[2022-05-18] VITALS (40 sets, daily range): BP systolic 110–175; BP diastolic 47–113
[2022-05-18] MEDS: HYDRALAZINE HCL 100MG TABLET PO SCH ×3 (05:26→21:13)
[2022-05-18] MEDS: METOPROLOL TARTRATE 25MG TABLET PO SCH ×2 (08:37→21:12)
[2022-05-18] MEDS: PANTOPRAZOLE SODIUM 40 MG/VIAL IV SCH (08:37)
[2022-05-18] MEDS: LEVETIRACETAM 500MG PREMIX 100 ML IV SCH ×2 (08:37→21:12)
[2022-05-18] MEDS: LOSARTAN POTASSIUM 50 MG TABLET PO SCH (08:37)
[2022-05-19] VITALS (24 sets, daily range): BP systolic 97–143; BP diastolic 52–98
[2022-05-19] MEDS: HYDRALAZINE HCL 100MG TABLET PO SCH ×3 (05:10→21:43)
[2022-05-19] MEDS: PANTOPRAZOLE SODIUM 40 MG/VIAL IV SCH (08:34)
[2022-05-19] MEDS: LEVETIRACETAM 500MG PREMIX 100 ML IV SCH ×2 (08:34→21:43)
[2022-05-19] MEDS: METOPROLOL TARTRATE 25MG TABLET PO SCH ×2 (08:35→21:43)
[2022-05-19] MEDS: LOSARTAN POTASSIUM 50 MG TABLET PO SCH (08:35)
[2022-05-20] VITALS: BP 108/42
[2022-05-20 04:00] VITALS: BP 110/45
[2022-05-20] MEDS: HYDRALAZINE HCL 100MG TABLET PO SCH ×3 (05:09→21:38)
[2022-05-20 08:00] VITALS: BP 125/87
[2022-05-20] MEDS: LOSARTAN POTASSIUM 50 MG TABLET PO SCH ×2 (09:00→10:00)
[2022-05-20] MEDS: METOPROLOL TARTRATE 25MG TABLET PO SCH ×3 (09:00→20:50)
[2022-05-20] MEDS: LEVETIRACETAM 500MG PREMIX 100 ML IV SCH (10:01)
[2022-05-20] MEDS: PANTOPRAZOLE SODIUM 40 MG/VIAL IV SCH (10:01)
[2022-05-20 12:00] VITALS: BP 110/69
[2022-05-20 16:00] VITALS: BP 116/54
[2022-05-20 20:00] VITALS: BP 131/68
[2022-05-20] MEDS: LEVETIRACETAM 500MG TABLET PO SCH (20:50)
[2022-05-21] VITALS (7 sets, daily range): BP systolic 99–139; BP diastolic 66–78
[2022-05-21] MEDS: HYDRALAZINE HCL 100MG TABLET PO SCH ×3 (06:00→21:11)
[2022-05-21] MEDS: PANTOPRAZOLE SODIUM 40 MG/VIAL IV SCH (09:33)
[2022-05-21] MEDS: LEVETIRACETAM 500MG TABLET PO SCH ×2 (09:33→21:00)
[2022-05-21] MEDS: LOSARTAN POTASSIUM 50 MG TABLET PO SCH (09:34)
[2022-05-21] MEDS: METOPROLOL TARTRATE 25MG TABLET PO SCH ×2 (09:34→21:00)
[2022-05-22 00:22] VITALS: BP 143/74
[2022-05-22 04:00] VITALS: BP 150/69
[2022-05-22] MEDS: HYDRALAZINE HCL 100MG TABLET PO SCH ×3 (05:41→20:42)
[2022-05-22 08:00] VITALS: BP 117/58
[2022-05-22] MEDS: LEVETIRACETAM 500MG TABLET PO SCH ×2 (08:51→21:13)
[2022-05-22] MEDS: LOSARTAN POTASSIUM 50 MG TABLET PO SCH (08:51)
[2022-05-22] MEDS: METOPROLOL TARTRATE 25MG TABLET PO SCH ×2 (08:51→21:14)
[2022-05-22] MEDS: PANTOPRAZOLE SODIUM 40 MG/VIAL IV SCH (08:51)
[2022-05-22 12:00] VITALS: BP 124/58
[2022-05-22 16:00] VITALS: BP 98/48
[2022-05-22 20:00] VITALS: BP 110/73
[2022-05-23] VITALS: BP 129/61
[2022-05-23 04:00] VITALS: BP 138/72
[2022-05-23] MEDS: HYDRALAZINE HCL 100MG TABLET PO SCH ×3 (05:30→22:20)
[2022-05-23 08:00] VITALS: BP 125/56
[2022-05-23] MEDS: METOPROLOL TARTRATE 25MG TABLET PO SCH ×2 (09:20→21:00)
[2022-05-23] MEDS: LEVETIRACETAM 500MG TABLET PO SCH ×2 (09:20→22:16)
[2022-05-23] MEDS: LOSARTAN POTASSIUM 50 MG TABLET PO SCH (09:20)
[2022-05-23] MEDS: PANTOPRAZOLE SODIUM 40 MG/VIAL IV SCH (09:21)
[2022-05-23 12:00] VITALS: BP 124/51
[2022-05-23 16:00] VITALS: BP 128/54
[2022-05-23 20:00] VITALS: BP 109/61
[2022-05-24] VITALS: BP 132/67
[2022-05-24 04:00] VITALS: BP 140/62
[2022-05-24] MEDS: HYDRALAZINE HCL 100MG TABLET PO SCH ×3 (06:45→22:00)
[2022-05-24] MEDS: METOPROLOL TARTRATE 25MG TABLET PO SCH ×2 (09:00→21:00)
[2022-05-24] MEDS: PANTOPRAZOLE SODIUM 40 MG/VIAL IV SCH (11:27)
[2022-05-24] MEDS: LEVETIRACETAM 500MG TABLET PO SCH ×2 (11:27→22:07)
[2022-05-24] MEDS: LOSARTAN POTASSIUM 50 MG TABLET PO SCH (11:27)
[2022-05-24 12:00] VITALS: BP 123/67
[2022-05-24 16:00] VITALS: BP 99/47
[2022-05-24 20:00] VITALS: BP 102/56
[2022-05-25] VITALS: BP 123/71
[2022-05-25] MEDS: HYDRALAZINE HCL 100MG TABLET PO SCH ×3 (06:59→21:39)
[2022-05-25 08:00] VITALS: BP 140/78
[2022-05-25] MEDS: METOPROLOL TARTRATE 25MG TABLET PO SCH ×2 (08:36→21:00)
[2022-05-25] MEDS: PANTOPRAZOLE SODIUM 40 MG/VIAL IV SCH (08:36)
[2022-05-25] MEDS: LEVETIRACETAM 500MG TABLET PO SCH ×2 (08:36→21:37)
[2022-05-25] MEDS: LOSARTAN POTASSIUM 50 MG TABLET PO SCH (08:36)
[2022-05-25 12:00] VITALS: BP 110/53
[2022-05-25 16:00] VITALS: BP 109/57
[2022-05-25 20:00] VITALS: BP 99/74
[2022-05-26] VITALS: BP 139/74
[2022-05-26 06:00] VITALS: BP 129/55
[2022-05-26] MEDS: HYDRALAZINE HCL 100MG TABLET PO SCH ×3 (06:40→21:15)
[2022-05-26 08:00] VITALS: BP 125/57
[2022-05-26] MEDS: LOSARTAN POTASSIUM 50 MG TABLET PO SCH (08:46)
[2022-05-26] MEDS: LEVETIRACETAM 500MG TABLET PO SCH ×2 (08:46→21:15)
[2022-05-26] MEDS: PANTOPRAZOLE SODIUM 40 MG/VIAL IV SCH (08:46)
[2022-05-26] MEDS: METOPROLOL TARTRATE 25MG TABLET PO SCH ×2 (08:47→20:28)
[2022-05-26 12:00] VITALS: BP 100/49
[2022-05-26 16:00] VITALS: BP 98/41
[2022-05-26 20:00] VITALS: BP 100/53
[2022-05-27] VITALS: BP 135/78
[2022-05-27 04:00] VITALS: BP 122/64
[2022-05-27] MEDS: HYDRALAZINE HCL 100MG TABLET PO SCH ×3 (05:21→21:23)
[2022-05-27 08:00] VITALS: BP 124/48
[2022-05-27] MEDS: PANTOPRAZOLE SODIUM 40 MG/VIAL IV SCH (09:55)
[2022-05-27] MEDS: LEVETIRACETAM 500MG TABLET PO SCH ×2 (09:55→21:23)
[2022-05-27] MEDS: METOPROLOL TARTRATE 25MG TABLET PO SCH ×2 (09:55→21:24)
[2022-05-27] MEDS: LOSARTAN POTASSIUM 50 MG TABLET PO SCH (09:56)
[2022-05-27 12:00] VITALS: BP 111/59
[2022-05-27 16:00] VITALS: BP 109/60
[2022-05-27 20:01] VITALS: BP 136/64
[2022-05-28 00:01] VITALS: BP 118/64
[2022-05-28 04:00] VITALS: BP 130/64
[2022-05-28] MEDS: HYDRALAZINE HCL 100MG TABLET PO SCH ×3 (05:25→21:19)
[2022-05-28 08:00] VITALS: BP 126/64
[2022-05-28] MEDS: METOPROLOL TARTRATE 25MG TABLET PO SCH ×2 (10:15→21:20)
[2022-05-28] MEDS: PANTOPRAZOLE SODIUM 40 MG/VIAL IV SCH (10:15)
[2022-05-28] MEDS: LOSARTAN POTASSIUM 50 MG TABLET PO SCH (10:16)
[2022-05-28] MEDS: LEVETIRACETAM 500MG TABLET PO SCH ×2 (10:16→21:20)
[2022-05-28 12:00] VITALS: BP 133/64
[2022-05-28 16:00] VITALS: BP 111/67
[2022-05-28 20:00] VITALS: BP 131/74
[2022-05-29] VITALS: BP 126/62
[2022-05-29 04:00] VITALS: BP 113/60
[2022-05-29] MEDS: HYDRALAZINE HCL 100MG TABLET PO SCH ×3 (06:25→23:32)
[2022-05-29 08:00] VITALS: BP 122/72
[2022-05-29] MEDS: METOPROLOL TARTRATE 25MG TABLET PO SCH ×2 (10:03→21:27)
[2022-05-29] MEDS: LOSARTAN POTASSIUM 50 MG TABLET PO SCH (10:03)
[2022-05-29] MEDS: LEVETIRACETAM 500MG TABLET PO SCH ×2 (10:03→21:26)
[2022-05-29] MEDS: PANTOPRAZOLE SODIUM 40 MG/VIAL IV SCH (10:03)
[2022-05-29 12:00] VITALS: BP 102/57
[2022-05-29 16:00] VITALS: BP 107/52
[2022-05-29 20:00] VITALS: BP 119/55
[2022-05-30] VITALS: BP 131/70
[2022-05-30 04:00] VITALS: BP 108/60
[2022-05-30] MEDS: HYDRALAZINE HCL 100MG TABLET PO SCH ×3 (06:00→21:40)
[2022-05-30 08:00] VITALS: BP 125/60
[2022-05-30] MEDS: PANTOPRAZOLE SODIUM 40 MG/VIAL IV SCH (08:24)
[2022-05-30] MEDS: LEVETIRACETAM 500MG TABLET PO SCH ×2 (08:24→21:40)
[2022-05-30] MEDS: LOSARTAN POTASSIUM 50 MG TABLET PO SCH (08:25)
[2022-05-30] MEDS: METOPROLOL TARTRATE 25MG TABLET PO SCH ×2 (08:25→21:40)
[2022-05-30 12:00] VITALS: BP 118/59
[2022-05-30 16:00] VITALS: BP 133/62
[2022-05-30 20:00] VITALS: BP 125/53
[2022-05-31] VITALS: BP 128/84
[2022-05-31 04:08] VITALS: BP 137/64
[2022-05-31] MEDS: HYDRALAZINE HCL 100MG TABLET PO SCH ×3 (05:12→21:59)
[2022-05-31 08:00] VITALS: BP 126/62
[2022-05-31] MEDS: PANTOPRAZOLE SODIUM 40 MG/VIAL IV SCH (08:33)
[2022-05-31] MEDS: LEVETIRACETAM 500MG TABLET PO SCH ×2 (08:34→21:57)
[2022-05-31] MEDS: METOPROLOL TARTRATE 25MG TABLET PO SCH ×2 (08:34→21:58)
[2022-05-31] MEDS: LOSARTAN POTASSIUM 50 MG TABLET PO SCH (08:34)
[2022-05-31 12:00] VITALS: BP 117/42
[2022-05-31 16:00] VITALS: BP 116/51
[2022-05-31 20:55] VITALS: BP 114/54
[2022-06-01 00:39] VITALS: BP 143/74
[2022-06-01 04:00] VITALS: BP 139/63
[2022-06-01] MEDS: HYDRALAZINE HCL 100MG TABLET PO SCH ×3 (05:14→21:07)
[2022-06-01] MEDS: LOSARTAN POTASSIUM 50 MG TABLET PO SCH (09:00)
[2022-06-01] MEDS: METOPROLOL TARTRATE 25MG TABLET PO SCH ×2 (09:00→20:56)
[2022-06-01] MEDS: PANTOPRAZOLE SODIUM 40 MG/VIAL IV SCH (10:04)
[2022-06-01] MEDS: LEVETIRACETAM 500MG TABLET PO SCH ×2 (10:04→21:06)
[2022-06-01 12:00] VITALS: BP 132/63
[2022-06-01 16:00] VITALS: BP 112/49
[2022-06-01 20:56] VITALS: BP 121/54
[2022-06-02 00:43] VITALS: BP 126/51
[2022-06-02 04:00] VITALS: BP 105/58
[2022-06-02] MEDS: HYDRALAZINE HCL 100MG TABLET PO SCH ×3 (05:32→21:00)
[2022-06-02 08:00] VITALS: BP 137/68
[2022-06-02] MEDS: METOPROLOL TARTRATE 25MG TABLET PO SCH ×2 (08:38→20:57)
[2022-06-02] MEDS: LOSARTAN POTASSIUM 50 MG TABLET PO SCH (08:38)
[2022-06-02] MEDS: LEVETIRACETAM 500MG TABLET PO SCH ×2 (08:38→20:57)
[2022-06-02] MEDS: PANTOPRAZOLE SODIUM 40 MG/VIAL IV SCH (08:46)
[2022-06-02 12:00] VITALS: BP 120/58
[2022-06-02 16:00] VITALS: BP 117/70
[2022-06-02 20:30] VITALS: BP 144/68
[2022-06-03] VITALS: BP 132/69
[2022-06-03 04:20] VITALS: BP 143/73
[2022-06-03] MEDS: HYDRALAZINE HCL 100MG TABLET PO SCH ×3 (05:30→20:41)
[2022-06-03 08:00] VITALS: BP 142/57
[2022-06-03] MEDS: PANTOPRAZOLE SODIUM 40 MG/VIAL IV SCH (08:53)
[2022-06-03] MEDS: LEVETIRACETAM 500MG TABLET PO SCH ×2 (08:54→20:41)
[2022-06-03] MEDS: METOPROLOL TARTRATE 25MG TABLET PO SCH ×2 (08:54→20:36)
[2022-06-03] MEDS: LOSARTAN POTASSIUM 50 MG TABLET PO SCH (08:54)
[2022-06-03 12:35] VITALS: BP 98/48
[2022-06-03 16:00] VITALS: BP 102/51
[2022-06-03 20:07] VITALS: BP 126/60
[2022-06-04] VITALS (7 sets, daily range): BP systolic 91–129; BP diastolic 46–75
[2022-06-04] MEDS: HYDRALAZINE HCL 100MG TABLET PO SCH ×3 (06:20→21:01)
[2022-06-04] MEDS: METOPROLOL TARTRATE 25MG TABLET PO SCH ×2 (10:18→20:47)
[2022-06-04] MEDS: LOSARTAN POTASSIUM 50 MG TABLET PO SCH (10:19)
[2022-06-04] MEDS: PANTOPRAZOLE 40MG DR TABLET PO SCH (10:19)
[2022-06-04] MEDS: LEVETIRACETAM 500MG TABLET PO SCH ×2 (10:19→20:55)
[2022-06-05] VITALS (7 sets, daily range): BP systolic 109–137; BP diastolic 53–69
[2022-06-05] MEDS: HYDRALAZINE HCL 100MG TABLET PO SCH ×3 (05:29→22:00)
[2022-06-05] MEDS: PANTOPRAZOLE 40MG DR TABLET PO SCH (10:20)
[2022-06-05] MEDS: METOPROLOL TARTRATE 25MG TABLET PO SCH ×2 (10:20→22:08)
[2022-06-05] MEDS: LOSARTAN POTASSIUM 50 MG TABLET PO SCH (10:21)
[2022-06-05] MEDS: LEVETIRACETAM 500MG TABLET PO SCH ×2 (10:21→22:08)
[2022-06-06 00:43] VITALS: BP 101/62
[2022-06-06 04:00] VITALS: BP 148/68
[2022-06-06] MEDS: HYDRALAZINE HCL 100MG TABLET PO SCH ×3 (06:19→21:04)
[2022-06-06 08:00] VITALS: BP 141/69
[2022-06-06 12:00] VITALS: BP 141/69
[2022-06-06] MEDS: LEVETIRACETAM 500MG TABLET PO SCH ×2 (12:06→20:12)
[2022-06-06] MEDS: DOCUSATE SODIUM 100MG CAPSULE PO SCH ×2 (12:06→18:33)
[2022-06-06] MEDS: POLYETHYLENE GLYCOL 3350 (17GM) 1 DOSE PACK PO SCH (12:06)
[2022-06-06] MEDS: LOSARTAN POTASSIUM 50 MG TABLET PO SCH (12:06)
[2022-06-06] MEDS: METOPROLOL TARTRATE 25MG TABLET PO SCH ×2 (12:07→20:12)
[2022-06-06] MEDS: FAMOTIDINE 20MG TABLET PO SCH (12:07)
[2022-06-06 16:00] VITALS: BP 108/63
[2022-06-06 20:00] VITALS: BP 145/72
[2022-06-06] MEDS ORDERED: LACTULOSE 20G/30ML UDC PO PRN (21:00)
[2022-06-07] VITALS: BP 140/66
[2022-06-07 04:00] VITALS: BP 117/57
[2022-06-07] MEDS: HYDRALAZINE HCL 100MG TABLET PO SCH ×3 (05:38→21:20)
[2022-06-07 08:00] VITALS: BP 155/65
[2022-06-07] MEDS: METOPROLOL TARTRATE 25MG TABLET PO SCH ×2 (08:42→21:21)
[2022-06-07] MEDS: LOSARTAN POTASSIUM 50 MG TABLET PO SCH (08:43)
[2022-06-07] MEDS: LEVETIRACETAM 500MG TABLET PO SCH ×2 (08:43→21:20)
[2022-06-07] MEDS: POLYETHYLENE GLYCOL 3350 (17GM) 1 DOSE PACK PO SCH (08:43)
[2022-06-07] MEDS: DOCUSATE SODIUM 100MG CAPSULE PO SCH ×2 (08:43→17:43)
[2022-06-07] MEDS: FAMOTIDINE 20MG TABLET PO SCH (08:43)
[2022-06-07 12:00] VITALS: BP 128/81
[2022-06-07 16:00] VITALS: BP 133/98
[2022-06-07 20:00] VITALS: BP 128/64
[2022-06-08] VITALS: BP 139/64
[2022-06-08 04:00] VITALS: BP 143/84
[2022-06-08] MEDS: HYDRALAZINE HCL 100MG TABLET PO SCH ×3 (06:33→21:29)
[2022-06-08 08:00] VITALS: BP 131/46
[2022-06-08] MEDS: POLYETHYLENE GLYCOL 3350 (17GM) 1 DOSE PACK PO SCH (08:50)
[2022-06-08] MEDS: LOSARTAN POTASSIUM 50 MG TABLET PO SCH (08:50)
[2022-06-08] MEDS: LEVETIRACETAM 500MG TABLET PO SCH ×2 (08:50→21:29)
[2022-06-08] MEDS: DOCUSATE SODIUM 100MG CAPSULE PO SCH ×2 (08:50→19:36)
[2022-06-08] MEDS: FAMOTIDINE 20MG TABLET PO SCH (08:50)
[2022-06-08] MEDS: METOPROLOL TARTRATE 25MG TABLET PO SCH ×2 (08:50→21:00)
[2022-06-08 12:00] VITALS: BP 130/64
[2022-06-08 12:43] LABS: BASOPHILS % 0.7 % (0.0-2.0); EOSINOPHILS % 1.9 % (0.0-5.0); HEMATOCRIT. 32.8 % (36.0-48.0); HEMOGLOBIN. 10.7 g/dL (12.0-16.0); MEAN CORPUSCULAR HEMOGLOBIN 27.5 pg (28.0-32.0); MONOCYTES % 11.3 % (2.0-8.0); NEUTROPHILS % 61.1 % (40.0-76.0); PLATELET 292 x1000/uL (130-400)
[2022-06-08 12:55] LABS: CHLORIDE 109 mEq/L (98-107)
[2022-06-08 16:00] VITALS: BP 131/56
[2022-06-08 20:00] VITALS: BP 134/68
[2022-06-09] VITALS: BP 153/81
[2022-06-09 04:00] VITALS: BP 111/69
[2022-06-09] MEDS: HYDRALAZINE HCL 100MG TABLET PO SCH ×3 (06:18→21:05)
[2022-06-09 08:00] VITALS: BP 128/68
[2022-06-09] MEDS: DOCUSATE SODIUM 100MG CAPSULE PO SCH ×2 (09:31→20:00)
[2022-06-09] MEDS: METOPROLOL TARTRATE 25MG TABLET PO SCH ×2 (09:31→21:05)
[2022-06-09] MEDS: LEVETIRACETAM 500MG TABLET PO SCH ×2 (09:31→21:05)
[2022-06-09] MEDS: LOSARTAN POTASSIUM 50 MG TABLET PO SCH (09:32)
[2022-06-09] MEDS: FAMOTIDINE 20MG TABLET PO SCH (09:32)
[2022-06-09] MEDS: POLYETHYLENE GLYCOL 3350 (17GM) 1 DOSE PACK PO SCH (09:32)
[2022-06-09 12:00] VITALS: BP 132/70
[2022-06-09 16:00] VITALS: BP 129/66
[2022-06-09 20:00] VITALS: BP 135/72
[2022-06-10] VITALS: BP 148/77
[2022-06-10 04:00] VITALS: BP 148/77
[2022-06-10] MEDS: HYDRALAZINE HCL 100MG TABLET PO SCH ×3 (05:34→22:00)
[2022-06-10 08:00] VITALS: BP 137/66
[2022-06-10] MEDS: METOPROLOL TARTRATE 25MG TABLET PO SCH ×2 (09:00→21:00)
[2022-06-10] MEDS: LEVETIRACETAM 500MG TABLET PO SCH ×2 (10:20→22:07)
[2022-06-10] MEDS: POLYETHYLENE GLYCOL 3350 (17GM) 1 DOSE PACK PO SCH (10:20)
[2022-06-10] MEDS: FAMOTIDINE 20MG TABLET PO SCH (10:20)
[2022-06-10] MEDS: LOSARTAN POTASSIUM 50 MG TABLET PO SCH (10:21)
[2022-06-10] MEDS: DOCUSATE SODIUM 100MG CAPSULE PO SCH ×2 (10:22→22:06)
[2022-06-10 12:00] VITALS: BP 108/64
[2022-06-10 16:00] VITALS: BP 109/60
[2022-06-10 20:00] VITALS: BP 107/64
[2022-06-11] VITALS: BP 142/73
[2022-06-11] MEDS: HYDRALAZINE HCL 100MG TABLET PO SCH ×3 (06:00→21:27)
[2022-06-11 08:00] VITALS: BP 147/65
[2022-06-11] MEDS: POLYETHYLENE GLYCOL 3350 (17GM) 1 DOSE PACK PO SCH (10:25)
[2022-06-11] MEDS: METOPROLOL TARTRATE 25MG TABLET PO SCH ×2 (10:26→21:00)
[2022-06-11] MEDS: LEVETIRACETAM 500MG TABLET PO SCH ×2 (10:26→21:13)
[2022-06-11] MEDS: DOCUSATE SODIUM 100MG CAPSULE PO SCH ×2 (10:26→17:00)
[2022-06-11] MEDS: FAMOTIDINE 20MG TABLET PO SCH (10:26)
[2022-06-11] MEDS: LOSARTAN POTASSIUM 50 MG TABLET PO SCH (10:26)
[2022-06-11 12:00] VITALS: BP 124/60
[2022-06-11 16:00] VITALS: BP 131/66
[2022-06-11 20:00] VITALS: BP 101/74
[2022-06-12] VITALS: BP 140/56
[2022-06-12 08:00] VITALS: BP 159/83
[2022-06-12] MEDS: LOSARTAN POTASSIUM 50 MG TABLET PO SCH (09:57)
[2022-06-12] MEDS: DOCUSATE SODIUM 100MG CAPSULE PO SCH ×2 (09:57→17:46)
[2022-06-12] MEDS: LEVETIRACETAM 500MG TABLET PO SCH ×2 (09:57→20:24)
[2022-06-12] MEDS: FAMOTIDINE 20MG TABLET PO SCH (09:57)
[2022-06-12] MEDS: POLYETHYLENE GLYCOL 3350 (17GM) 1 DOSE PACK PO SCH (09:57)
[2022-06-12] MEDS: METOPROLOL TARTRATE 25MG TABLET PO SCH (09:58)
[2022-06-12 12:00] VITALS: BP 145/78
[2022-06-12] MEDS: HYDRALAZINE HCL 100MG TABLET PO SCH (14:00)
[2022-06-12 16:00] VITALS: BP 143/65
[2022-06-12 20:00] VITALS: BP 167/72
[2022-06-13] VITALS: BP 188/86
[2022-06-13 04:00] VITALS: BP 122/91
[2022-06-13 08:00] VITALS: BP 153/84
[2022-06-13] MEDS: LEVETIRACETAM 500MG TABLET PO SCH ×2 (09:06→21:13)
[2022-06-13] MEDS: POLYETHYLENE GLYCOL 3350 (17GM) 1 DOSE PACK PO SCH (09:06)
[2022-06-13] MEDS: DOCUSATE SODIUM 100MG CAPSULE PO SCH ×2 (09:06→19:05)
[2022-06-13] MEDS: FAMOTIDINE 20MG TABLET PO SCH (09:06)
[2022-06-13 12:00] VITALS: BP 136/77
[2022-06-13 16:00] VITALS: BP 137/74
[2022-06-13] MEDS: METOPROLOL TARTRATE 25MG TABLET PO SCH (19:06)
[2022-06-13 20:00] VITALS: BP 133/84
[2022-06-13] MEDS: HYDRALAZINE HCL 100MG TABLET PO SCH (21:21)
[2022-06-14] VITALS: BP 135/52
[2022-06-14 04:00] VITALS: BP 134/56
[2022-06-14] MEDS: HYDRALAZINE HCL 100MG TABLET PO SCH ×3 (06:17→22:24)
[2022-06-14] MEDS: METOPROLOL TARTRATE 25MG TABLET PO SCH ×2 (09:00→21:00)
[2022-06-14] MEDS: POLYETHYLENE GLYCOL 3350 (17GM) 1 DOSE PACK PO SCH (09:00)
[2022-06-14] MEDS: LOSARTAN POTASSIUM 50 MG TABLET PO SCH (09:00)
[2022-06-14] MEDS: DOCUSATE SODIUM 100MG CAPSULE PO SCH ×2 (09:30→16:48)
[2022-06-14] MEDS: FAMOTIDINE 20MG TABLET PO SCH (09:30)
[2022-06-14] MEDS: LEVETIRACETAM 500MG TABLET PO SCH ×2 (09:30→21:20)
[2022-06-14 10:55] VITALS: BP 105/49
[2022-06-14 12:30] VITALS: BP 110/52
[2022-06-14 16:00] VITALS: BP 106/50
[2022-06-14 20:00] VITALS: BP 103/53
[2022-06-15] VITALS (7 sets, daily range): BP systolic 99–129; BP diastolic 48–60
[2022-06-15] MEDS: HYDRALAZINE HCL 100MG TABLET PO SCH ×3 (06:00→21:40)
[2022-06-15] MEDS: POLYETHYLENE GLYCOL 3350 (17GM) 1 DOSE PACK PO SCH (08:54)
[2022-06-15] MEDS: LOSARTAN POTASSIUM 50 MG TABLET PO SCH (08:55)
[2022-06-15] MEDS: METOPROLOL TARTRATE 25MG TABLET PO SCH ×2 (08:56→21:00)
[2022-06-15] MEDS: LEVETIRACETAM 500MG TABLET PO SCH ×2 (08:57→21:40)
[2022-06-15] MEDS: DOCUSATE SODIUM 100MG CAPSULE PO SCH ×2 (08:57→17:00)
[2022-06-15] MEDS: FAMOTIDINE 20MG TABLET PO SCH (08:57)
[2022-06-16 08:00] VITALS: BP 153/73
[2022-06-16] MEDS: LOSARTAN POTASSIUM 50 MG TABLET PO SCH (09:16)
[2022-06-16] MEDS: LEVETIRACETAM 500MG TABLET PO SCH ×2 (09:16→21:19)
[2022-06-16] MEDS: METOPROLOL TARTRATE 25MG TABLET PO SCH ×2 (09:16→21:20)
[2022-06-16] MEDS: FAMOTIDINE 20MG TABLET PO SCH (09:16)
[2022-06-16] MEDS: DOCUSATE SODIUM 100MG CAPSULE PO SCH ×2 (09:16→17:00)
[2022-06-16] MEDS: POLYETHYLENE GLYCOL 3350 (17GM) 1 DOSE PACK PO SCH (09:17)
[2022-06-16 12:00] VITALS: BP 133/62
[2022-06-16] MEDS: HYDRALAZINE HCL 100MG TABLET PO SCH ×3 (14:00→22:00)
[2022-06-16 16:00] VITALS: BP 160/59
[2022-06-16 20:00] VITALS: BP 128/62
[2022-06-17] VITALS: BP 127/55
[2022-06-17 04:00] VITALS: BP 125/58
[2022-06-17] MEDS: HYDRALAZINE HCL 100MG TABLET PO SCH ×3 (05:56→20:42)
[2022-06-17 08:00] VITALS: BP 133/65
[2022-06-17] MEDS: DOCUSATE SODIUM 100MG CAPSULE PO SCH ×2 (08:51→17:00)
[2022-06-17] MEDS: LOSARTAN POTASSIUM 50 MG TABLET PO SCH (08:52)
[2022-06-17] MEDS: FAMOTIDINE 20MG TABLET PO SCH (08:52)
[2022-06-17] MEDS: METOPROLOL TARTRATE 25MG TABLET PO SCH ×2 (11:07→20:43)
[2022-06-17] MEDS: LEVETIRACETAM 500MG TABLET PO SCH ×2 (11:07→20:43)
[2022-06-17] MEDS: POLYETHYLENE GLYCOL 3350 (17GM) 1 DOSE PACK PO SCH (11:08)
[2022-06-17 12:00] VITALS: BP 114/55
[2022-06-17 16:00] VITALS: BP 119/59
[2022-06-17 20:15] VITALS: BP 124/60
[2022-06-18] VITALS: BP_SYST 119; BP_SYST 124; BP_DIAS 60; BP_DIAS 69
[2022-06-18 04:00] VITALS: BP 125/74
[2022-06-18] MEDS: HYDRALAZINE HCL 100MG TABLET PO SCH ×3 (05:45→20:01)
[2022-06-18 08:00] VITALS: BP 100/76
[2022-06-18] MEDS: METOPROLOL TARTRATE 25MG TABLET PO SCH ×2 (09:00→20:01)
[2022-06-18] MEDS: DOCUSATE SODIUM 100MG CAPSULE PO SCH ×2 (09:00→17:00)
[2022-06-18] MEDS: LOSARTAN POTASSIUM 50 MG TABLET PO SCH (09:00)
[2022-06-18] MEDS: POLYETHYLENE GLYCOL 3350 (17GM) 1 DOSE PACK PO SCH (09:00)
[2022-06-18] MEDS: FAMOTIDINE 20MG TABLET PO SCH (09:32)
[2022-06-18 12:00] VITALS: BP 128/64
[2022-06-18 16:00] VITALS: BP 117/61
[2022-06-18 20:00] VITALS: BP 102/67
[2022-06-19] VITALS: BP 139/63
[2022-06-19 04:00] VITALS: BP 124/68
[2022-06-19] MEDS: HYDRALAZINE HCL 100MG TABLET PO SCH ×3 (06:30→21:26)
[2022-06-19 08:00] VITALS: BP 141/82
[2022-06-19] MEDS: DOCUSATE SODIUM 100MG CAPSULE PO SCH ×2 (09:00→17:00)
[2022-06-19] MEDS: POLYETHYLENE GLYCOL 3350 (17GM) 1 DOSE PACK PO SCH (09:00)
[2022-06-19] MEDS: LOSARTAN POTASSIUM 50 MG TABLET PO SCH (09:08)
[2022-06-19] MEDS: FAMOTIDINE 20MG TABLET PO SCH (09:08)
[2022-06-19] MEDS: METOPROLOL TARTRATE 25MG TABLET PO SCH ×2 (09:08→20:20)
[2022-06-19 12:00] VITALS: BP 143/75
[2022-06-19 16:00] VITALS: BP 144/82
[2022-06-19 20:00] VITALS: BP 135/62
[2022-06-20] VITALS (7 sets, daily range): BP systolic 108–170; BP diastolic 59–81
[2022-06-20] MEDS: HYDRALAZINE HCL 100MG TABLET PO SCH ×3 (05:29→21:31)
[2022-06-20] MEDS: POLYETHYLENE GLYCOL 3350 (17GM) 1 DOSE PACK PO SCH (09:00)
[2022-06-20] MEDS: DOCUSATE SODIUM 100MG CAPSULE PO SCH ×2 (09:00→16:54)
[2022-06-20] MEDS: METOPROLOL TARTRATE 25MG TABLET PO SCH ×2 (09:18→21:00)
[2022-06-20] MEDS: FAMOTIDINE 20MG TABLET PO SCH (09:18)
[2022-06-20] MEDS: LOSARTAN POTASSIUM 50 MG TABLET PO SCH (09:19)
[2022-06-21] VITALS: BP_SYST 150; BP_SYST 170; BP_DIAS 66; BP_DIAS 79
[2022-06-21 04:00] VITALS: BP 140/65
[2022-06-21] MEDS: HYDRALAZINE HCL 100MG TABLET PO SCH ×3 (06:00→22:00)
[2022-06-21 08:00] VITALS: BP 159/71
[2022-06-21] MEDS: DOCUSATE SODIUM 100MG CAPSULE PO SCH ×2 (09:00→17:00)
[2022-06-21] MEDS: METOPROLOL TARTRATE 25MG TABLET PO SCH ×3 (09:00→20:51)
[2022-06-21] MEDS: POLYETHYLENE GLYCOL 3350 (17GM) 1 DOSE PACK PO SCH (09:00)
[2022-06-21] MEDS: LOSARTAN POTASSIUM 50 MG TABLET PO SCH (09:11)
[2022-06-21] MEDS: FAMOTIDINE 20MG TABLET PO SCH (09:13)
[2022-06-21 12:00] VITALS: BP 127/77
[2022-06-21 16:00] VITALS: BP 120/52
[2022-06-21 20:00] VITALS: BP 118/54
[2022-06-22] VITALS: BP 104/54
[2022-06-22 04:00] VITALS: BP 134/67
[2022-06-22] MEDS: HYDRALAZINE HCL 100MG TABLET PO SCH ×3 (06:00→22:00)
[2022-06-22 08:00] VITALS: BP 146/59
[2022-06-22] MEDS: LOSARTAN POTASSIUM 50 MG TABLET PO SCH (08:51)
[2022-06-22] MEDS: FAMOTIDINE 20MG TABLET PO SCH (08:51)
[2022-06-22] MEDS: DOCUSATE SODIUM 100MG CAPSULE PO SCH ×2 (08:55→17:00)
[2022-06-22] MEDS: POLYETHYLENE GLYCOL 3350 (17GM) 1 DOSE PACK PO SCH (08:55)
[2022-06-22] MEDS: METOPROLOL TARTRATE 25MG TABLET PO SCH ×2 (08:55→20:51)
[2022-06-22 12:00] VITALS: BP 108/58
[2022-06-22 20:00] VITALS: BP 131/83
[2022-06-23] VITALS: BP 142/61
[2022-06-23] MEDS: HYDRALAZINE HCL 100MG TABLET PO SCH ×3 (06:05→20:14)
[2022-06-23 08:09] VITALS: BP 126/61
[2022-06-23] MEDS: FAMOTIDINE 20MG TABLET PO SCH (08:53)
[2022-06-23] MEDS: DOCUSATE SODIUM 100MG CAPSULE PO SCH ×2 (08:53→17:29)
[2022-06-23] MEDS: POLYETHYLENE GLYCOL 3350 (17GM) 1 DOSE PACK PO SCH (08:54)
[2022-06-23] MEDS: METOPROLOL TARTRATE 25MG TABLET PO SCH ×2 (08:54→20:13)
[2022-06-23] MEDS: LOSARTAN POTASSIUM 50 MG TABLET PO SCH (08:54)
[2022-06-23 23:35] VITALS: BP 160/145
[2022-06-24 04:10] VITALS: BP 139/60
[2022-06-24] MEDS: HYDRALAZINE HCL 100MG TABLET PO SCH ×3 (05:49→21:08)
[2022-06-24 07:40] VITALS: BP 144/60
[2022-06-24] MEDS: LOSARTAN POTASSIUM 50 MG TABLET PO SCH (08:32)
[2022-06-24] MEDS: DOCUSATE SODIUM 100MG CAPSULE PO SCH ×2 (08:32→16:36)
[2022-06-24] MEDS: METOPROLOL TARTRATE 25MG TABLET PO SCH ×2 (08:32→21:07)
[2022-06-24] MEDS: FAMOTIDINE 20MG TABLET PO SCH (08:32)
[2022-06-24] MEDS: POLYETHYLENE GLYCOL 3350 (17GM) 1 DOSE PACK PO SCH (08:32)
[2022-06-24 20:00] VITALS: BP 120/60
[2022-06-25 06:30] VITALS: BP 130/64
[2022-06-25] MEDS: HYDRALAZINE HCL 100MG TABLET PO SCH ×4 (06:50→20:35)
[2022-06-25 08:00] VITALS: BP 126/62
[2022-06-25] MEDS: DOCUSATE SODIUM 100MG CAPSULE PO SCH ×2 (09:23→17:00)
[2022-06-25] MEDS: POLYETHYLENE GLYCOL 3350 (17GM) 1 DOSE PACK PO SCH (09:23)
[2022-06-25] MEDS: METOPROLOL TARTRATE 25MG TABLET PO SCH ×2 (09:23→20:36)
[2022-06-25] MEDS: FAMOTIDINE 20MG TABLET PO SCH (09:23)
[2022-06-25] MEDS: LOSARTAN POTASSIUM 50 MG TABLET PO SCH (09:23)
[2022-06-25 12:00] VITALS: BP 129/57
[2022-06-25 16:00] VITALS: BP 114/62
[2022-06-25 20:00] VITALS: BP 127/51
[2022-06-26] VITALS: BP 128/60
[2022-06-26 04:00] VITALS: BP 133/82
[2022-06-26] MEDS: HYDRALAZINE HCL 100MG TABLET PO SCH ×3 (05:37→21:00)
[2022-06-26 08:00] VITALS: BP 97/63
[2022-06-26] MEDS: POLYETHYLENE GLYCOL 3350 (17GM) 1 DOSE PACK PO SCH (08:00)
[2022-06-26] MEDS: METOPROLOL TARTRATE 25MG TABLET PO SCH ×2 (09:00→21:01)
[2022-06-26] MEDS: DOCUSATE SODIUM 100MG CAPSULE PO SCH ×2 (09:00→17:00)
[2022-06-26] MEDS: LOSARTAN POTASSIUM 50 MG TABLET PO SCH (09:00)
[2022-06-26] MEDS: FAMOTIDINE 20MG TABLET PO SCH (10:19)
[2022-06-26 12:00] VITALS: BP 134/55
[2022-06-26 16:00] VITALS: BP 110/62
[2022-06-26 20:00] VITALS: BP 143/63
[2022-06-27] VITALS: BP 109/70
[2022-06-27 04:00] VITALS: BP 130/65
[2022-06-27] MEDS: HYDRALAZINE HCL 100MG TABLET PO SCH ×3 (05:23→21:06)
[2022-06-27 08:00] VITALS: BP 124/50
[2022-06-27] MEDS: DOCUSATE SODIUM 100MG CAPSULE PO SCH ×2 (08:54→17:00)
[2022-06-27] MEDS: FAMOTIDINE 20MG TABLET PO SCH (08:55)
[2022-06-27] MEDS: METOPROLOL TARTRATE 25MG TABLET PO SCH ×2 (08:55→21:00)
[2022-06-27] MEDS: LOSARTAN POTASSIUM 50 MG TABLET PO SCH (08:55)
[2022-06-27] MEDS: POLYETHYLENE GLYCOL 3350 (17GM) 1 DOSE PACK PO SCH (08:55)
[2022-06-27 12:00] VITALS: BP 125/99
[2022-06-27 16:00] VITALS: BP 131/68
[2022-06-27 20:00] VITALS: BP 105/42
[2022-06-27] MEDS: ATORVASTATIN CALCIUM 40MG TABLET PO SCH (21:13)
[2022-06-28] VITALS: BP 136/71
[2022-06-28 04:00] VITALS: BP 111/46
[2022-06-28] MEDS: HYDRALAZINE HCL 100MG TABLET PO SCH ×3 (04:59→21:18)
[2022-06-28 08:00] VITALS: BP 131/59
[2022-06-28] MEDS: POLYETHYLENE GLYCOL 3350 (17GM) 1 DOSE PACK PO SCH (09:00)
[2022-06-28] MEDS: DOCUSATE SODIUM 100MG CAPSULE PO SCH ×2 (09:00→17:00)
[2022-06-28] MEDS: FAMOTIDINE 20MG TABLET PO SCH (09:00)
[2022-06-28] MEDS: METOPROLOL TARTRATE 25MG TABLET PO SCH ×2 (09:21→20:49)
[2022-06-28] MEDS: LOSARTAN POTASSIUM 50 MG TABLET PO SCH (09:21)
[2022-06-28 12:00] VITALS: BP 131/55
[2022-06-28 16:31] VITALS: BP 139/59
[2022-06-28 20:00] VITALS: BP 141/85
[2022-06-28] MEDS: ATORVASTATIN CALCIUM 40MG TABLET PO SCH (20:50)
[2022-06-29 04:00] VITALS: BP 121/48
[2022-06-29] MEDS: HYDRALAZINE HCL 100MG TABLET PO SCH ×2 (06:19→14:52)
[2022-06-29] MEDS: POLYETHYLENE GLYCOL 3350 (17GM) 1 DOSE PACK PO SCH (07:38)
[2022-06-29 08:00] VITALS: BP 132/50
[2022-06-29] MEDS: DOCUSATE SODIUM 100MG CAPSULE PO SCH (08:55)
[2022-06-29] MEDS: LOSARTAN POTASSIUM 50 MG TABLET PO SCH (08:59)
[2022-06-29] MEDS: FAMOTIDINE 20MG TABLET PO SCH (08:59)
[2022-06-29] MEDS: METOPROLOL TARTRATE 25MG TABLET PO SCH (09:05)
[2022-06-29 16:13] VITALS: BP 141/85
== END 2022-06-29 17:05 | DRG 25 ==
LOC: ER 12:45 → MICUSO 16:58 → EDBEDREQ 17:04 → ENRESERV 17:04 → EDBEDREQSVC 17:04 → EDBEDREQ 17:05 → EDBEDREQTM 17:09 → 7WST 05-19 15:40 → 6EST 06-09 17:24 → 5WST 06-14 10:42
PROVIDERS: ADMIT Hospitalist; ATTEND Hospitalist
PROC: 00C40ZZ Extirpation of Matter from Intracranial Subdural Space, Open Approach (ICD-10-PCS; principal; 2022-05-12)
PROC: 4A103BD Monitoring of Intracranial Pressure, Percutaneous Approach (ICD-10-PCS; 2022-05-12)
PROC: 00H032Z Insertion of Monitoring Device into Brain, Percutaneous Approach (ICD-10-PCS; 2022-05-12)
DX: I62.02 Nontraumatic subacute subdural hemorrhage (principal); A41.51 Sepsis due to Escherichia coli [E. coli]; E43 Unspecified severe protein-calorie malnutrition; G93.40 Encephalopathy, unspecified; K57.92 Diverticulitis of intestine, part unspecified, without perforation or abscess without bleeding; N39.0 Urinary tract infection, site not specified; E11.9 Type 2 diabetes mellitus without complications; I10 Essential (primary) hypertension; D64.9 Anemia, unspecified; E78.5 Hyperlipidemia, unspecified; R00.1 Bradycardia, unspecified; Z20.822 Contact with and (suspected) exposure to COVID-19; Z88.0 Allergy status to penicillin; Z88.8 Allergy status to other drugs, medicaments and biological substances; Z91.018 Allergy to other foods; Z68.22 Body mass index [BMI] 22.0-22.9, adult; Z90.710 Acquired absence of both cervix and uterus
CPT/HCPCS: 36415; 70551; 71045; 80048; 80053; 80061; 80170; 84484; 85025; 87426; 88304; 93005; 93970; 97110; 97162; 97165; 97530; 97535; 99291; A6261; C1893; C9113; J1100; J1580; J1953; J2270; J2405; J2704; J3490; J7030; J7050; J7120; J7121; C1713